=== PATIENT | female | born 2000 | race African-American/Black ===

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

== ENCOUNTER 2020-01-06 20:18 | Emergency (ER) | payer OTHER ==
[~2020-01-06] VITALS: Ht 149.9 cm; Wt 77.3 kg
[~2020-01-06 20:18] MED LIST: CIPRO500 MG PO; PROZAC10 MG PO; VOLTAREN75 MG PO
[2020-01-06 20:29] VITALS: Ht 149.9 cm; Wt 77.3 kg
[2020-01-06 21:02] LABS: BASOPHILS 0.3 % (0-2); EOSINOPHILS 0.3 % (0-7); HEMATOCRIT 37.1 % (36.0-48.0); HEMOGLOBIN 11.9 g/dL (12-16); LYMPHOCYTES 31.1 % (15-50); MCH 28.7 pg (26.0-34.0); MCHC 32.1 g/dL (31.0-37.0); MCV 89.6 fL (80.0-100.0); MEAN PLATELET VOLUME 10.2 fL (7.4-10.4); NEUTROPHILS 60.3 % (40-80); PLATELET COUNT 281 10x3/uL (130-400); RBC 4.14 10x6/uL (4.00-5.40); RDW 14.4 % (11.5-14.5); WBC 3.9 10x3/uL (4.8-10.8)
[2020-01-06 21:12] LABS: APTT 34.6 SECONDS (22.8-39.4); INR 1.07 (0.85-1.17); PROTIME 13.8 SECONDS (11.6-15.0)
[2020-01-06 21:17] LABS: CALC OSMOLALITY 278 mosm/kg (275-300); CALCIUM 8.6 mg/dL (8.5-10.1); CARBON DIOXIDE 30.4 mmol/L (21.0-32.0); CHLORIDE - SERUM 105 mmol/L (98-107); CREATININE - SERUM 0.9 mg/dL (0.6-1.3); GLUCOSE 124 mg/dL (74-106); POTASSIUM - SERUM 3.5 mmol/L (3.5-5.1); SODIUM 140 mmol/L (136-145); UREA NITROGEN 10 mg/dL (7-18); eGFR NON AFRICAN AMERICAN 85 mL/min (90-120)
[2020-01-06 21:23] LABS: ALBUMIN 3.4 g/dL (3.4-5.0); ALKALINE PHOSPHATASE 74 U/L (30-120); ALT (SGPT) 27 U/L (10-68); PROTEIN - SERUM 7.2 g/dL (6.4-8.2)
[2020-01-06] MEDS ORDERED: ANUSOL-HC 2.5%30 GM TOPICAL (21:54)
[2020-01-06 22:33] VITALS: BP 115/78
== END 2020-01-07 02:52 | disposition home or self-care (01) ==
LOC: D.ER 20:18
PROVIDERS: Family Medicine
DX: K62.5 Hemorrhage of anus and rectum (principal); R51 Headache; R42 Dizziness and giddiness